=== PATIENT | male | born 1990 | race Caucasian/White ===

== ENCOUNTER 2017-02-13 13:27 | Emergency (ER) | payer SELFPAY ==
[~2017-02-13] VITALS: Ht 170.2 cm; Wt 75.0 kg
[2017-02-13] MEDS ORDERED: GADODIAMIDE PF 287 MG/ML 20 ML VIAL (for RAD MRI) IVCONTRAST ONE (13:28)
[2017-02-13 13:38] VITALS: BP 118/83; PULSE 114; RESP 18; TEMP 98.8; O2SAT 97
[2017-02-13] MEDS ORDERED: DALBAVANCIN INJ 1,500 MG in DEXTROSE 5% IN WATE 500 ML INJ 500 ML IV STA ×2 (14:57)
[2017-02-13] MEDS ORDERED: ASP: Location of Dalbavancin administration OTHER ONE (15:00)
[2017-02-13] MEDS ORDERED: ASP: No known hypersensitivity to Vanco, Telavancin, Dalbavancin OTHER ONE (15:00)
[2017-02-13] MEDS ORDERED: MISCELLANEOUS PHARMACY INFORMATION XX ONE (15:00)
[2017-02-13] MEDS ORDERED: ASP: Does not meet inpatient admission criteria OTHER ONE (15:00)
[2017-02-13] MEDS ORDERED: ASP: Only reason for admit - IV antibiotics OTHER ONE (15:00)
--- NOTE | 2017-02-13 15:08 | PD ---
HPI Chief Complaint: Skin Problem Time Seen by Provider: 14:37 Travel History International Travel<30 days: No Contact w/Intl Traveler<30days: No Traveled to known affect area: No History of Present Illness HPI 26-year-old male presents to the emergency room for evaluation of right upper extremity redness and pain for the past week. Patient states she was trying to inject IV heroin and missed his vein. He had a small area of redness that has progressively gotten larger. It started draining foul-smelling discharge this morning when he woke up. He denies fever, chills, nausea, and vomiting. States about 3 days ago he began to have difficulty straightening his elbow because of pain. Patient is moving to [facility] and states that he will not stay in the hospital if needed because his only ride is leaving [facility]. Denies chronic medical conditions or daily medications. [facility] Social History Alcohol Use: Yes Tobacco Use: Yes Substance Use: Yes (IVDA started using in january) Allergies-Medications (Allergen,Severity, Reaction): Coded Allergies: No Known Allergies (Unverified , 02/13/17) Review of Systems Except as stated in HPI: all other systems reviewed are Neg Physical Exam Narrative GENERAL: Well-nourished, well-developed male in no acute distress. Afebrile. Ambulatory. SKIN: Focused skin assessment warm/dry. There is an indurated area in the right medial antecubital space which measures about 8 cm in diameter. It is fluctuant with spontaneous, foul-smelling, purulent drainage. There is a zone of inflammation around it but no lymphangitis. HEAD: Normocephalic. EYES: No scleral icterus. No injection or drainage. NECK: Supple, trachea midline. No JVD or lymphadenopathy. CARDIOVASCULAR: Regular rate and rhythm without murmurs, gallops, or rubs. RESPIRATORY: Breath sounds equal bilaterally. No accessory muscle use. MUSCULOSKELETAL: No cyanosis. Mild to moderate edema of the right antecubital space on the medial aspect. Limited range of motion of the right elbow secondary to pain. 2+ radial pulse. Data Data Last Documented VS Vital Signs Date Time Temp Pulse Resp B/P (MAP) Pulse Ox O2 Delivery O2 Flow Rate FiO2 02/13/17 13:38 98.8 114 18 118/83 (95) 97 Orders Orders Complete Blood Count With Diff (02/13/17 14:57) Comprehensive Metabolic Panel (02/13/17 14:57) Blood Culture (02/13/17 14:57) Case Management Consult (02/13/17 ) Asp:No Reaction To Dalbav/Vanc (Asp Crit (02/13/17 15:00) Asp: Does Not Meet Inpt Admit (Asp Crit: (02/13/17 15:00) Asp: Iv Antibiotics Admit Only (Asp Crit (02/13/17 15:00) Asp: Location Of Dalbav Admin (Asp Crit: (02/13/17 15:00) [facility] ([facility] (02/13/17 15:00) Dalbavancin Inj (Dalvance Inj) (02/13/17 14:57) Alfred Bandage (02/13/17 14:57) Elevate (02/13/17 14:57) Document (02/13/17 14:57) Measurements (02/13/17 14:57) C-Reactive Protein (Crp) (02/13/17 14:57) Westergren Sedimentation Rate (02/13/17 14:57) Sodium Chlor 0.9% 1000 Ml Inj (Ns 1000 M (02/13/17 16:30) Mri Joint Elbow W&W/O Contrast (02/13/17 ) Gadodiamide Pf Inj (Omniscan Pf Inj) (02/13/17 13:28) Labs Laboratory Tests Test 02/13/17 15:30 White Blood Count 23.2 TH/MM3 Red Blood Count 5.01 MIL/MM3 Hemoglobin 15.5 GM/DL Hematocrit 44.9 % Mean Corpuscular Volume 89.6 FL Mean Corpuscular Hemoglobin 30.9 PG Mean Corpuscular Hemoglobin Concent 34.5 % Red Cell Distribution Width 13.5 % Platelet Count 197 TH/MM3 Mean Platelet Volume 10.0 FL Neutrophils (%) (Auto) 84.5 % Lymphocytes (%) (Auto) 8.1 % Monocytes (%) (Auto) 7.0 % Eosinophils (%) (Auto) 0.0 % Basophils (%) (Auto) 0.4 % Neutrophils # (Auto) 19.6 TH/MM3 Lymphocytes # (Auto) 1.9 TH/MM3 Monocytes # (Auto) 1.6 TH/MM3 Eosinophils # (Auto) 0.0 TH/MM3 Basophils # (Auto) 0.1 TH/MM3 CBC Comment DIFF FINAL Differential Comment Erythrocyte Sedimentation Rate 21 mm/hr Blood Urea Nitrogen 9 MG/DL Creatinine 0.94 MG/DL Random Glucose 115 MG/DL Total Protein 8.4 GM/DL Albumin 3.9 GM/DL Calcium Level 9.2 MG/DL Alkaline Phosphatase 121 U/L Aspartate Amino Transf (AST/SGOT) 12 U/L Alanine Aminotransferase (ALT/SGPT) 34 U/L Total Bilirubin 0.9 MG/DL Sodium Level 131 MEQ/L Potassium Level 3.4 MEQ/L Chloride Level 95 MEQ/L Carbon Dioxide Level 26.0 MEQ/L Anion Gap 10 MEQ/L Estimat Glomerular Filtration Rate 99 ML/MIN C-Reactive Protein 15.30 MG/DL [facility] Medical Decision Making Medical Screen Exam Complete: Yes Emergency Medical Condition: Yes Medical Record Reviewed: Yes Differential Diagnosis Septic arthritis, abscess, cellulitis Narrative Course 26-year-old male presents to the emergency room for evaluation of right medial antecubital space redness and pain after injecting IV heroin in one week ago. Patient missed his vein and has had increasing redness since then. States it began to drain this morning. He has been unable to perform range of motion exercises for the past 3 days. Right upper extremity is neurovascularly intact with 2+ radial pulse. There is about 8 cm area of induration with spontaneous drainage at the medial antecubital space. There is surrounding erythema but no lymphangitis. It is hot to the touch and foul-smelling. Vital signs stable. No systemic signs of infection. IV access obtained and basic labs established. Patient states he will not stay in the hospital if necessary because he has to travel to [facility]. He is a good candidate for Dalvance because the only indication for admission would be IV antibiotics. MRI obtained to evaluate for septic arthritis given patient's inability to fully extend elbow. MRI shows an elderly edema in the subcutaneous tissue of the elbow confined to the superficial tissues without evidence for deep space abscess or joint effusion. Patient was encouraged to follow up with a primary care physician and return to the emergency room for any worsening symptoms including extension of erythema beyond the lines or development of fevers. He is stable for outpatient follow-up and refuses to stay anyway. Diagnosis Primary Impression: Right arm cellulitis Referrals: Primary Care Physician Additional Instructions: Today you received Dalvance. This medication stays in her system for 2 weeks and you will not require any further antibiotic treatment. Follow-up with her primary care physician. Return to the emergency room for any worsening of symptoms. Return if redness extends outside purple line or if you develop fevers. Disposition: 01 DISCHARGE HOME Condition: Stable Katheryn Sanderson Feb 13, 2017 15:08
[2017-02-13 15:53] LABS: AUTOMATED NEUTROPHIL # 19.6 TH/MM3 (1.8-7.7); BASOPHIL # 0.1 TH/MM3 (0-0.2); BASOPHIL % 0.4 % (0.0-2.0); HEMATOCRIT 44.9 % (39.0-51.0); HEMO FLAGS DIFF FINAL; LYMPH % 8.1 % (9.0-44.0); LYMPHOCYTE # 1.9 TH/MM3 (1.0-4.8); MEAN CELL VOLUME 89.6 FL (80.0-100.0); MEAN CORPUSCULAR HEMOGLOBIN 30.9 PG (27.0-34.0); MEAN CORPUSCULAR HGB CONC 34.5 % (32.0-36.0); NEUT % 84.5 % (16.0-70.0); PLATELET COUNT 197 TH/MM3 (150-450); RED BLOOD COUNT 5.01 MIL/MM3 (4.50-5.90); RED CELL DISTRIBUTION WIDTH 13.5 % (11.6-17.2); WHITE BLOOD COUNT 23.2 TH/MM3 (4.0-11.0)
[2017-02-13 16:13] LABS: ALT (GPT) 34 U/L (12-78); ANION GAP 10 MEQ/L (5-15); AST (GOT) 12 U/L (15-37); BLOOD UREA NITROGEN 9 MG/DL (7-18); CHLORIDE 95 MEQ/L (98-107); GLOMERULAR FILTRATION RATE 99 ML/MIN (>89); POTASSIUM 3.4 MEQ/L (3.5-5.1); SODIUM (NA) 131 MEQ/L (136-145)
[2017-02-13 16:15] LABS: ALKALINE PHOSPHATASE 121 U/L (45-117); TOTAL BILIRUBIN ADULT 0.9 MG/DL (0.2-1.0)
[2017-02-13] MEDS ORDERED: SODIUM CHLOR 0.9% 1000 ML INJ 1,000 ML IV ONE (16:30)
--- NOTE | 2017-02-13 17:47 | RADRPT ---
EXAM DATE/TIME: 02/13/2017 16:49 [place] COMPARISON: No previous studies available for comparison. INDICATIONS : Abscess. CONTRAST: 15 cc Omniscan (gadodiamide) IV MEDICAL HISTORY : IVDA SURGICAL HISTORY : None. ENCOUNTER: Initial ACUITY: 1 day PAIN SCORE: 0/10 LOCATION: Right Elbow. TECHNIQUE: Multiplanar, multisequence MRI examination was performed without contrast and after the intravenous a dministration of gadolinium. FINDINGS: Examination limited by body habitus, inability to straighten and motion. There is generalized edema in the subcutaneous tissues of the elbow localized to the inner surface of the of the joint, confined to the superficial tissues without evidence for deep space abscess or joint effusion. CONCLUSION: Severely limited exam without evidence for abscess. Ultrasound could be used to follo w developing abscess. Kojo Saldaña MD FACR on February 13, 2017 at 17:41 Board Certified Radiologist. This report was verified electronically.
== END 2017-02-13 19:18 | disposition home or self-care (01) ==
LOC: NEPD 13:27
DX: L03.113 Cellulitis of right upper limb (principal); Z72.0 Tobacco use
CPT/HCPCS: 73223; 80053; 85025; 85652; 86140; 87040; 96365; 96366; 99285; A9579; J0875; J7030; J7060